=== PATIENT | male | born 1975 | race Caucasian/White ===

== ENCOUNTER 2016-09-27 11:47 | Emergency (ER) | payer BC, OTHER ==
[~2016-09-27] VITALS: Ht 172.7 cm; Wt 86.8 kg
[2016-09-27] MEDS ORDERED: ONDANSETRON 2MG/ML, 2ML IVPush ONE (13:00)
[2016-09-27] MEDS ORDERED: ONDANSETRON 2MG/ML, 2ML ONE (13:00)
[2016-09-27] MEDS ORDERED: MORPHINE SULFATE 4 MG/ML, 1ML ONE (13:00)
[2016-09-27] MEDS ORDERED: SODIUM CHLORIDE FLUSH 10ML SYR IVF ONE (13:00)
[2016-09-27] MEDS ORDERED: MORPHINE SULFATE 4 MG/ML, 1ML IVPush PRN (13:00)
[2016-09-27] MEDS ORDERED: SODIUM CHLORIDE 0.9% 1,000ML IVBOLUS ONE (13:00)
[2016-09-27 13:10] LABS: BLOOD UREA NITROGEN 12 mg/dL (7-18)
[2016-09-27 13:15] LABS: ASPARTATE AMINO TRANSFERASE 48 U/L (15-37)
[2016-09-27] MEDS ORDERED: OMNIPAQUE 350 MG/ML, 100ML BOTTLE ONE (13:44)
[2016-09-27 13:59] LABS: DIFF TOTAL CELLS COUNTED 100 CELL DIFF
[2016-09-27 14:13] LABS: VERIFY COUNTS? YES
[2016-09-27 14:14] LABS: GIANT PLATELETS 3+
[2016-09-27 14:31] VITALS: BP 102/59
[2016-09-28 08:23] LABS: HOWELL-JOLLY BODIES 1+
== END 2016-09-27 14:43 | disposition home or self-care (01) ==
LOC: ED 13:23
DX: K57.32 Diverticulitis of large intestine without perforation or abscess without bleeding (principal)
CPT/HCPCS: 36415; 74177; 80053; 81003; 83690; 85025; 96361; 96374; 96375; 99285; J2405; J7030; Q9967